=== PATIENT | female | born 1985 | race Asian ===

== ENCOUNTER 2022-12-07 11:25 | Outpatient (CLI) | payer OTHER ==
--- NOTE | 2022-12-07 12:40 | XRAY Report ---
PROCEDURE: Chest 2 View X-Ray INDICATIONS: PRODUCTIVE COUGH TECHNIQUE: 2 views of the chest were acquired. COMPARISON: None. FINDINGS: Surgical changes and devices: None. Lungs and pleura: No pleural effusions or pneumothorax. Lungs are clear. Mediastinum: Mediastinal contours are normal. Heart size is normal. Bones and chest wall: No suspicious bony abnormalities. Soft tissues appear unremarkable. IMPRESSION: No evidence acute pulmonary process. Reviewed by: Cristhian Banegas MD on 12/07/2022 12:38 PM PST Approved by: Cristhian Banegas MD on 12/07/2022 12:38 PM [facility] Station ID: [id number]
== END 2022-12-07 11:26 | disposition home or self-care (01) ==
LOC: DI 11:25
PROVIDERS: ATTEND Nurse Practitioner
DX: R05.8 Other specified cough (principal)

== ENCOUNTER 2023-04-15 20:14 | Emergency (ER) | payer OTHER ==
[2023-04-15 23:30] VITALS: BP 128/96
--- NOTE | 2023-04-15 23:52 | ED Physician Documentation ---
PD HPI HEENT - Stated complaint Stated Complaint: COUGH/SORE THROAT - Chief complaint Chief Complaint: Heent - History obtained from History obtained from: Patient - Additional information Additional information: The pt comes to the ED with CC of dry cough and mild rhinorrhea. She states the only reason she checked in was that her son has similar sx, and she thinks she has the same thing. She says that she figured if we wanted to test her son for anything, she would just volunteer to be tested instead, so he didn't have to go through it. Pt denies fevers. No dyspnea. PD PAST MEDICAL HISTORY - Past Medical History Past Medical History: No - Past Surgical History Past Surgical History: No - Present Medications Home Medications: Ambulatory Orders Medication Instructions Recorded Confirmed No Known Home Medications 04/15/23 04/15/23 - Allergies Allergies/Adverse Reactions: Allergies Allergy/AdvReac Type Severity Reaction Status Date / Time No Known Drug Allergies Allergy Verified 04/15/23 20:16 - Social History Does the pt smoke?: No Smoking Status: Never smoker Does the pt drink ETOH?: Yes Does the pt have substance abuse?: No - Immunizations Immunizations are current?: Yes - POLST Patient has POLST: No PD ED PE NORMAL - Vitals Vital signs reviewed: Yes - General General: Alert and oriented X 3, No acute distress, Well developed/nourished - HEENT HEENT: Atraumatic, PERRL, EOMI, Moist mucous membranes - Neck Neck: Supple, no meningeal sign - Cardiac Cardiac: RRR, No murmur - Respiratory Respiratory: No respiratory distress, Clear bilaterally - Abdomen Abdomen: Soft, Non tender, Non distended - Derm Derm: Warm and dry - Extremities Extremities: No deformity - Neuro Neuro: Alert and oriented X 3 - Psych Psych: Normal mood, Normal affect Results - Vitals Vitals: Oxygen O2 Source Room air PD Medical Decision Making - ED course Complexity details: considered differential, d/w patient ED course: The pt was well-appearing, and I did not feel either she or her son needed emergent viral panel. We have discussed symptomatic management at home and the usual indications for return. Departure - Departure Disposition: 01 Home, Self Care Clinical Impression: Viral URI Condition: Stable Instructions: ED Viral Syndrome Discharge Date/Time: 04/16/23 00:11
== END 2023-04-16 00:11 | disposition home or self-care (01) ==
LOC: ED 20:14
DX: J06.9 Acute upper respiratory infection, unspecified (principal)
CPT/HCPCS: 99281; 99283

== ENCOUNTER 2023-12-16 10:53 | Outpatient (CLI) | payer OTHER ==
[2023-12-16 18:45] LABS: BASOPHILS # (AUTO) 0.1 10^3/uL (0.0-0.1); BASOPHILS % (AUTO) 0.7 %; EOSINOPHILS # (AUTO) 0.6 10^3/uL (0.0-0.7); HCT - HEMATOCRIT 41.7 % (37.0-47.0); LYMPHOCYTES # (AUTO) 1.9 10^3/uL (1.5-3.5); LYMPHOCYTES % (AUTO) 15.2 %; MEAN CORPUSCULAR HEMOGLOBIN 32.5 pg (27.0-31.0); MEAN CORPUSCULAR HGB CONC 33.6 g/dL (32.0-36.0); MEAN CORPUSCULAR VOLUME 96.8 fL (81.0-99.0); MEAN PLATELET VOLUME 11.3 fL (7.9-10.8); MONOCYTES # (AUTO) 0.7 10^3/uL (0.0-1.0); MONOCYTES % (AUTO) 5.7 %; NEUTROPHILS # (AUTO) 9.2 10^3/uL (1.5-6.6); NEUTROPHILS % (AUTO) 72.8 %; PLT - PLATELET COUNT 263 10^3/uL (130-450); RED BLOOD COUNT 4.31 10^6/uL (4.20-5.40); RED CELL DISTRIBUTION WIDTH 12.4 % (12.0-15.0); WHITE BLOOD COUNT 12.6 x10^3/uL (4.8-10.8)
[2023-12-16 19:20] LABS: ALBUMIN 4.3 g/dL (3.2-5.5); ALBUMIN/GLOBULIN RATIO 1.4 (1.0-2.2); BILIRUBIN,TOTAL 0.4 mg/dL (0.2-1.0); CALCIUM 9.8 mg/dL (8.5-10.3); CREATININE 0.6 mg/dL (0.6-1.3); POTASSIUM 3.7 mmol/L (3.5-4.5); TOTAL PROTEIN 7.4 g/dL (6.4-8.9)
[2023-12-18 04:09] LABS: HBsAG SCREEN Negative (Negative)
[2023-12-18 05:13] LABS: RPR Non Reactive (Non Reactive)
[2023-12-18 06:10] LABS: HCV AB Non Reactive (Non Reactive); HIV SCREEN 4TH GENERATION Non Reactive (Non Reactive)
[2023-12-18 09:10] LABS: VARICELLA-ZOSTER AB IGG 1737 index (Immune >165)
== END 2023-12-16 10:54 | disposition home or self-care (01) ==
LOC: LAB.N 10:53
PROVIDERS: ATTEND Physician Assistant
DX: Z87.59 Personal history of other complications of pregnancy, childbirth and the puerperium (principal); Z36.89 Encounter for other specified antenatal screening; O09.529 Supervision of elderly multigravida, unspecified trimester
CPT/HCPCS: 36415; 80053; 85025; 86592; 86762; 86787; 86803; 86850; 86900; 86901; 87340; 87389

== ENCOUNTER 2024-03-02 09:22 | Outpatient (CLI) | payer OTHER ==
--- NOTE | 2024-03-02 14:51 | Ultrasound Report ---
PROCEDURE: OB Anatomy Scan INDICATIONS: SUPERVISION OF OUTSIDE/PRIOR DATING DATA: Last menstrual period (LMP): 10/06/2023. LMP-based estimated date of delivery (BRENDAN): 07/12/2024. First dating scan (date and location): 03/02/2024. Estimated date of delivery (BRENDAN) from first dating scan: 07/12/2024. The below data below was generated using the ultrasound BRENDAN of 07/12/2024 TECHNIQUE: Real-time scanning was performed of the fetus, with image documentation and biometric measurements. Endovaginal scanning: Not performed. COMPARISON: None. FINDINGS: General: A single living intrauterine gestation is present. Presentation: Variable Placenta: Placental position is posterior, without previa. Amniotic fluid index: 18.2 cm, within normal limits for gestational age. heart rate: 136 beats per minute. Maternal cervical canal: 5.2 cm long; normal length is 2.5 cm or more. biometrics: Biparietal diameter: 4.98 cm, 21 weeks 1 day, 45.7% Head circumference: 19.14 cm, 21 weeks 3 days, 51.8% Abdominal circumference: 17.44 cm, 22 weeks 3 days, 80.7% Femur length: 3.68 cm, 21 weeks, 5 days, 60.8% Estimated gestational age from initial scan: 21 weeks, 1 day Composite gestational age from present scan: 21 weeks, 3 days Estimated weight and percentile: 464.6 g, 85.5% Measurement variability in biometric dating: +/- 10 days from 12-20 weeks gestation, +/- 2 weeks from 20-30 weeks gestation, +/- 3 weeks at 30 weeks gestation or later. Anatomic survey: Neuro: Ventricles are normal at less than 10 mm. Cisterna magna is normal at 3-11 mm. Cerebellum i s normal in size and morphology. Nuchal skin fold: Normal at less than 6 mm between 14 and 20 weeks gestational age. Face: Nose and lips, facial profile are normal. Spine: No evidence for spina bifida. Heart: 4-chambered heart is present, with normal ventricular outflow tracts. Diaphragm: Diaphragm is intact. Stomach: Left-sided stomach is present. Kidneys: No hydronephrosis. Normal is less than 5 mm in 2nd trimester, less than 7 mm in 3rd trimester. Cord: 3 vessel cord has orthotopic insertion. Bladder: Normal in size. Extremities: All 4 extremities are visualized. IMPRESSION: 1. Single live intrauterine gestation with a composite gestational age of 21 weeks, 3 days which is c oncordant with dates by LMP. 2. No sonographic anatomic abnormalities. Reviewed by: Eliz Cherry MD on 03/02/2024 2:50 PM PDT Approved by: Eliz Cherry MD on 03/02/2024 2:50 PM PDT Station ID: [id number]
== END 2024-03-02 09:23 | disposition home or self-care (01) ==
LOC: DI 09:22
PROVIDERS: ATTEND Nurse Practitioner Obstetrics & Gynecology
DX: Z34.02 Encounter for supervision of normal first pregnancy, second trimester (principal); Z36.89 Encounter for other specified antenatal screening

== ENCOUNTER 2024-03-16 20:04 | Emergency (ER) | payer OTHER ==
[2024-03-16 20:25] VITALS: BP 126/63; O2SAT 98
[2024-03-16 21:11] LABS: B. PARAPERTUSSIS- RESP PCR PAN NOT DETECTED; B. PERTUSSIS- RESP PCR PANEL NOT DETECTED; C. PNEUMONIAE- RESP PCR PANEL NOT DETECTED; CORONAVIRUS 229E-RESP PCR NOT DETECTED; CORONAVIRUS HKU1-RESP PCR NOT DETECTED; CORONAVIRUS NL63-RESP PCR NOT DETECTED; CORONAVIRUS OC43-RESP PCR NOT DETECTED; HUMAN METAPNEUMOVIRUS NOT DETECTED; INFLUENZA A- RESP PCR PANEL NOT DETECTED; INFLUENZA B - RESP PCR PANEL NOT DETECTED; M. PNEUMONIAE- RESP PCR PANEL NOT DETECTED; PARAINFLUENZA VIRUS 1 NOT DETECTED; PARAINFLUENZA VIRUS 2 NOT DETECTED; PARAINFLUENZA VIRUS 3 NOT DETECTED; PARAINFLUENZA VIRUS 4 NOT DETECTED; RHINOVIRUS/ENTEROVIRUS NOT DETECTED; RSV- RESP PCR PANEL NOT DETECTED; SARS-CoV-2 -RESP PCR PANEL NOT DETECTED
--- NOTE | 2024-03-16 21:41 | ED Physician Documentation ---
History of Present Illness - Stated complaint Stated Complaint: JAW PX/SINUS PX - Chief complaint Chief Complaint: Heent - History obtained from History obtained from: Patient - Additonal information Additional information: 39-year-old woman 23 weeks with positive motion had a cough last week but today over the last 3 days comes in with more sinus pain especially on the right maxillary sinus for 3 days without fevers. PD PAST MEDICAL HISTORY - Past Medical History Past Medical History: No - Past Surgical History Past Surgical History: No - Present Medications Home Medications: Ambulatory Orders Medication Instructions Recorded Confirmed Amoxicillin 500 mg PO TID #30 cap 03/16/24 Aspirin [Saline Aspirin] 81 mg PO DAILY 03/16/24 03/16/24 - Allergies Allergies/Adverse Reactions: Allergies Allergy/AdvReac Type Severity Reaction Status Date / Time No Known Drug Allergies Allergy Verified 03/16/24 20:14 - Social History Does the pt smoke?: No Smoking Status: Never smoker Does the pt drink ETOH?: Yes Does the pt have substance abuse?: No - Immunizations Immunizations are current?: Yes - POLST Patient has POLST: No PD ED PE NORMAL - Vitals Vital signs reviewed: Yes - General General: Alert and oriented X 3, No acute distress - HEENT HEENT: Other (Tender right maxillary sinus. TMs are normal. Oropharynx is normal, good dentition.) - Neck Neck: Supple, no meningeal sign, No bony TTP - Abdomen Abdomen: Other (Gravid) Results - Vitals Vitals: Vital Signs - 24 hr 03/16/24 20:11 Temperature 36 C L Heart Rate 86 Respiratory 18 Rate Blood Pressure 126/63 O2 Saturation 98 Oxygen O2 Source Room air - Labs Labs: Laboratory Tests 03/16/24 20:17 Nasal Adenovirus (PCR) NOT DETECTED Nasal B. parapertussis DNA (PCR) NOT DETECTED Nasal Coronavir 229E PCR NOT DETECTED Nasal Coronavir HKU1 PCR NOT DETECTED Nasal Coronavir NL63 PCR NOT DETECTED Nasal Coronavir OC43 PCR NOT DETECTED Nasal Enterovir/Rhinovir PCR NOT DETECTED Nasal Influenza B PCR NOT DETECTED Nasal Influenza A PCR NOT DETECTED Nasal Parainfluen 1 PCR NOT DETECTED Nasal Parainfluen 2 PCR NOT DETECTED Nasal Parainfluen 3 PCR NOT DETECTED Nasal Parainfluen 4 PCR NOT DETECTED Nasal RSV (PCR) NOT DETECTED Nasal B.pertussis DNA PCR NOT DETECTED Nasal C.pneumoniae (PCR) NOT DETECTED Antonio Human Metapneumo PCR NOT DETECTED Nasal M.pneumoniae (PCR) NOT DETECTED Nasal SARS-CoV-2 (PCR) NOT DETECTED Departure - Departure Disposition: 01 Home, Self Care Clinical Impression: Sinusitis Condition: Good Record reviewed to determine appropriate education?: Yes Instructions: ED Sinusitis Abx Tx Prescriptions: Amoxicillin 500 mg PO TID #30 cap Comments: I sent your prescription electronically to the [facility] in [place]. We are treating you for a sinus infection with amoxicillin. You can take Tylenol, 2 extra strength up to every 6 hours for pain. Return if worse. Follow-up with your OB as per routine.
[2024-03-16] MEDS: AMOXICILLIN 250 MG CAPSULE PO STA (21:51)
== END 2024-03-16 21:52 | disposition home or self-care (01) ==
LOC: ED 20:04
DX: O26.892 Other specified pregnancy related conditions, second trimester (principal); Z3A.23 23 weeks gestation of pregnancy; J32.0 Chronic maxillary sinusitis; Z79.82 Long term (current) use of aspirin; O09.512 Supervision of elderly primigravida, second trimester
CPT/HCPCS: 87633; 99283; A9270

== ENCOUNTER 2024-04-15 08:03 | Outpatient (CLI) | payer OTHER ==
[2024-04-15 08:23] LABS: HCT - HEMATOCRIT 37.2 % (37.0-47.0); HGB - HEMOGLOBIN 12.1 g/dL (12.0-16.0); MEAN CORPUSCULAR HEMOGLOBIN 31.9 pg (27.0-31.0); MEAN CORPUSCULAR HGB CONC 32.5 g/dL (32.0-36.0); MEAN CORPUSCULAR VOLUME 98.2 fL (81.0-99.0); MEAN PLATELET VOLUME 11.1 fL (7.9-10.8); RED BLOOD COUNT 3.79 10^6/uL (4.20-5.40); RED CELL DISTRIBUTION WIDTH 13.7 % (12.0-15.0); WHITE BLOOD COUNT 13.1 x10^3/uL (4.8-10.8)
[2024-04-15 08:36] LABS: GTT GLUCOSE,FASTING 90 mg/dL (74-109)
== END 2024-04-15 08:04 | disposition home or self-care (01) ==
LOC: LAB 08:03
PROVIDERS: ATTEND Nurse Practitioner Obstetrics & Gynecology
DX: Z36.9 Encounter for antenatal screening, unspecified (principal)
CPT/HCPCS: 36415; 82951; 85027

== ENCOUNTER 2024-06-16 08:00 | Outpatient (CLI) | payer OTHER | END 2024-06-16 23:59 | disposition home or self-care (01) | LOC: LAB.WC 08:00 | PROVIDERS: ATTEND Nurse Practitioner | DX: Z34.83 Encounter for supervision of other normal pregnancy, third trimester (principal) | CPT/HCPCS: 87797 ==

== ENCOUNTER 2024-07-03 10:17 | Outpatient (CLI) | payer OTHER ==
--- NOTE | 2024-07-03 10:52 | PROVIDER PROGRESS NOTE ---
- HPI Chief Complaint: Labor Check - Procedures OB Procedure Performed: NST NST Procedure: FHR baseline 140s, moderate variability, + accels, no decels Contractions palpate mild occasionally with soft resting tone - Plan Plan: Margarita is a 39yo @ 38.4wks gestation who presents with c/o contractions. She does not feel like she is necessarily in labor but she feels like she is having a difficulty time differentiating her symptoms as she has previously had her labors induced. She denies vaginal bleeding or leakage of fluid and reports +FM. NST reactive. 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 Vertex A: 39yo @ 38.4wks gestation False labor >37wks gestation FHR Category I Plan: Pt released home with precautions. Reviewed warning s/sx and when to present. Pt has emergency contact number. Follow up for routine visit in the office as scheduled next week or sooner PRN. Pt verbalized understanding and agrees to above plan. She denies further questions or concerns at this time. FINAL DIAGNOSIS: False labor >37wks gestation
[2024-07-03 10:58] VITALS: BP 124/83
[2024-07-03 13:26] VITALS: O2SAT 98
== END 2024-07-03 11:25 | disposition home or self-care (01) ==
LOC: WFO 10:17 → FBP 10:19 → WFO 11:25
PROVIDERS: ATTEND Nurse Practitioner Obstetrics & Gynecology
DX: O47.1 False labor at or after 37 completed weeks of gestation (principal); Z3A.38 38 weeks gestation of pregnancy
CPT/HCPCS: 59025; 99213; 99214

== ENCOUNTER 2024-07-05 23:44 | Inpatient (IN) | payer OTHER ==
[2024-07-06] MEDS ORDERED: OXYTOCIN 10 UNIT/ML VIAL IM PRN (00:02)
[2024-07-06] MEDS ORDERED: NIFEdipine 10 MG CAPSULE PO PRN (00:02)
[2024-07-06] MEDS ORDERED: METHYLERGONOVINE 0.2 MG/ML VIAL IM PRN (00:02)
[2024-07-06] MEDS ORDERED: SODIUM CHLORIDE FLUSH 0.9% 10 ML SYRINGE IVP PRN (00:02)
[2024-07-06] MEDS ORDERED: lidocaine 1% 20 ML MDV ID PRN (00:02)
[2024-07-06] MEDS ORDERED: LABETALOL 20 MG/4 ML SYRINGE IVP PRN ×3 (00:02)
[2024-07-06] MEDS ORDERED: miSOPROStoL 200 MCG TABLET PR PRN (00:02)
[2024-07-06] MEDS ORDERED: miSOPROStoL 200 MCG TABLET BC PRN (00:02)
[2024-07-06] MEDS ORDERED: TERBUTALINE 1 MG/ML VIAL SUBQ PRN (00:02)
[2024-07-06] MEDS ORDERED: fentaNYL 100 MCG/2 ML VIAL IVP PRN (00:02)
[2024-07-06] MEDS ORDERED: TRANEXAMIC ACID IN NACL 1,000 MG/100 ML BAG IV PRN (00:02)
[2024-07-06] MEDS ORDERED: CARBOPROST TROMETHAMINE 250 MCG/ML VIAL IM PRN (00:02)
[2024-07-06] MEDS ORDERED: hydrALAZINE INJ 20 MG/ML VIAL IVP PRN ×2 (00:02)
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
[2024-07-06 00:45] LABS: BASOPHILS # (AUTO) 0.1 10^3/uL (0.0-0.1); BASOPHILS % (AUTO) 0.6 %; EOSINOPHILS # (AUTO) 0.5 10^3/uL (0.0-0.7); EOSINOPHILS % (AUTO) 4.9 %; HCT - HEMATOCRIT 36.1 % (37.0-47.0); HGB - HEMOGLOBIN 12.1 g/dL (12.0-16.0); LYMPHOCYTES # (AUTO) 1.7 10^3/uL (1.5-3.5); LYMPHOCYTES % (AUTO) 16.2 %; MEAN CORPUSCULAR HGB CONC 33.5 g/dL (32.0-36.0); MEAN CORPUSCULAR VOLUME 95.5 fL (81.0-99.0); MEAN PLATELET VOLUME 11.2 fL (7.9-10.8); MONOCYTES # (AUTO) 1.1 10^3/uL (0.0-1.0); MONOCYTES % (AUTO) 10.2 %; NEUTROPHILS # (AUTO) 6.6 10^3/uL (1.5-6.6); NEUTROPHILS % (AUTO) 64.3 %; PLT - PLATELET COUNT 161 10^3/uL (130-450); RED BLOOD COUNT 3.78 10^6/uL (4.20-5.40); RED CELL DISTRIBUTION WIDTH 13.4 % (12.0-15.0); WHITE BLOOD COUNT 10.3 x10^3/uL (4.8-10.8)
[2024-07-06] MEDS ORDERED: SODIUM CHLORIDE FLUSH 0.9% 10 ML SYRINGE IVP SCH (01:00)
[2024-07-06 01:04] LABS: ALBUMIN 3.3 g/dL (3.2-5.5); ALBUMIN/GLOBULIN RATIO 1.1 (1.0-2.2); BILIRUBIN,TOTAL 0.3 mg/dL (0.2-1.0); CREATININE 0.7 mg/dL (0.6-1.3); POTASSIUM 3.7 mmol/L (3.5-4.5); TOTAL PROTEIN 6.2 g/dL (6.4-8.9)
[2024-07-06 04:34] VITALS: O2SAT 99
[2024-07-06] MEDS: LACTATED RINGERS 1,000 ML IV PRN (04:59)
[2024-07-06] MEDS ORDERED: ROPIVACAINE 0.2% 200 MG/100 ML BAG EP ONE (05:17)
[2024-07-06] MEDS ORDERED: LIDOCAINE 2%-EPI 1:100000 20 ML MDV ONE (05:17)
[2024-07-06] MEDS ORDERED: ROPIVACAINE 0.2% 200 MG/100 ML BAG EP PRN (05:58)
[2024-07-06] MEDS ORDERED: ePHEDrine 50 MG/ML VIAL IVP PRN (05:58)
[2024-07-06] MEDS ORDERED: NALOXONE 0.4 MG/ML VIAL IVP PRN (05:58)
--- NOTE | 2024-07-06 05:58 | ANESTHESIA ---
Pre-Anesthesia VS, & Labs - Diagnosis active labor - Procedure vaginal delivery Vital Signs: Temp Pulse Resp BP Pulse Ox O2 Flow Rate 36.4 C L 79 17 105/63 99 07/06/24 04:33 07/06/24 04:33 07/06/24 04:33 07/06/24 04:07/06/24 04:33 Height: 5 ft 2 in Weight (kg): 75.75 kg Body Mass Index: 30.5 BMI Classification: Obese - NPO >8 hours - Is Patient ?: Yes - Lab Results Current Lab Results: Laboratory Tests 07/06/24 00:27: Sodium 135, Potassium 3.7, Chloride 107, Carbon Dioxide 20 L, Anion Gap 8.0, BUN 14, Creatinine 0.7, Estimated GFR (MDRD) 94, Glucose 116 H, Calcium 9.0, Total Bilirubin 0.3, AST 16, ALT 17, Alkaline Phosphatase 87, Total Protein 6.2 L, Albumin 3.3, Globulin 2.9, Albumin/Globulin Ratio 1.1 07/06/24 00:27: WBC 10.3, RBC 3.78 L, Hgb 12.1, Hct 36.1 L, MCV 95.5, MCH 32.0 H , MCHC 33.5, RDW 13.4, Plt Count 161, MPV 11.2 H, Neut # (Auto) 6.6, Lymph # (Auto) 1.7, [place] # (Auto) 1.1 H, Eos # (Auto) 0.5, Baso # (Auto) 0.1, Absolute Nucleated RBC 0.00, Nucleated RBC % 0.0 07/06/24 00:27: Blood Type O POSITIVE, Antibody Screen NEGATIVE Lab results reviewed: Yes Fish Bones: 07/06/24 00:27 07/06/24 00:27 Home Medications and Allergies Active Medications Carboprost Tromethamine (Carboprost Tromethamine 250 Mcg/Ml Vial) 250 mcg IM .ONCE PRN PRN Reason: Hemorrhage Fentanyl (Fentanyl 100 Mcg/2 Ml Vial) 50 mcg IVP Q1H PRN PRN Reason: Severe Pain (score 7-10) Hydralazine HCl (Hydralazine Inj 20 Mg/Ml Vial) 5 - 10 mg IVP Q20M PRN; Protocol PRN Reason: SBP> or= 160 OR DBP> or= 110 Hydralazine HCl (Hydralazine Inj 20 Mg/Ml Vial) 10 mg IVP .ONCE PRN; Protocol PRN Reason: SBP> or= 160 OR DBP> or= 110 Lactated Ringer's (Lr) 500 mls @ 999 mls/hr IV PRN PRN PRN Reason: PER PHYSICIAN ORDER Last Admin: 07/06/24 04:59 Dose: 999 mls/hr Oxytocin/Sodium Chloride (Pitocin/Sodium Chloride) 500 mls @ 999 mls/hr IV PRN PRN; Protocol PRN Reason: POST- HEMORR PREVENTION Tranexamic Acid (Tranexamic 1,000 Mg/100ml-Nacl) 1,000 mg in 100 mls @ 600 mls/hr IV Q30M PRN PRN Reason: EBL >1200mL and within 3hr Labetalol HCl (Labetalol 20 Mg/4 Ml Syringe) 20 - 80 mg IVP Q10M PRN; Protocol PRN Reason: SBP> or= 160 OR DBP> or= 110 Labetalol HCl (Labetalol 20 Mg/4 Ml Syringe) 20 mg IVP .ONCE PRN; Protocol PRN Reason: SBP> or= 160 OR DBP> or= 110 Labetalol HCl (Labetalol 20 Mg/4 Ml Syringe) 20 - 40 mg IVP Q10M PRN; Protocol PRN Reason: SBP> or= 160 OR DBP> or= 110 Lidocaine HCl (Lidocaine 1% 20 Ml Mdv) 20 ml ID .ONCE PRN PRN Reason: PERINEAL REPAIR Stop: 07/09/24 00:02 Methylergonovine Maleate (Methylergonovine 0.2 Mg/Ml Vial) 0.2 mg IM .ONCE PRN PRN Reason: Hemorrhage Misoprostol (Misoprostol 200 Mcg Tablet) 600 mcg BC .ONCE PRN PRN Reason: Hemorrhage Misoprostol (Misoprostol 200 Mcg Tablet) 800 mcg HI .ONCE PRN PRN Reason: Hemorrhage Nifedipine (Nifedipine 10 Mg Capsule) 10 - 20 mg PO Q20M PRN; Protocol PRN Reason: SBP> or= 160 OR DBP> or= 110 Oxytocin (Oxytocin 10 Unit/Ml Vial) 10 unit IM .ONCE PRN PRN Reason: Step One if no IV access. Sodium Chloride (Sodium Chloride Flush 0.9% 10 Ml Syringe) 10 ml IVP PRN PRN PRN Reason: NEEDED PER PROVIDER ORDERS Sodium Chloride (Sodium Chloride Flush 0.9% 10 Ml Syringe) 10 ml IVP Q8H AKIL Terbutaline Sulfate (Terbutaline 1 Mg/Ml Vial) 0.25 mg SUBQ .ONCE PRN PRN Reason: Tachystole Aspirin [[place] Aspirin] 81 mg PO DAILY 03/16/24 Allergies/Adverse Reactions: Allergies Allergy/AdvReac Type Severity Reaction Status Date / Time No Known Drug Allergies Allergy Verified 03/16/24 20:14 Anes History & Medical History - Anesthetic History Anesthesia Complications: reports: No previous complications - Medical History Cardiovascular: reports: None Pulmonary: reports: None Gastrointestinal: reports: None Urinary: reports: None Neuro: reports: None Musculoskeletal: reports: None Endocrine/Autoimmune: reports: None Blood Disorders: reports: None Skin: reports: None Smoking Status: Never smoker Psychosocial: reports: No issues indicated History of Cancer?: No Other Past Medical History: History of PDPH with second epidural. Required blood patch. - Surgical History Gynecologic: reports: Breast implants, Other (breast implant removal) - Obstetrical History : 3 Parity: 2 Events: reports: None Complications: reports: None Exam General: Alert, Oriented x3, Cooperative, No acute distress Dental: WNL Mouth Openin Fingerbreadth Neck Mobility: Normal Mallampati classification: II Thyromental Distance: 4-6 cm Mental/Cognitive Status: Alert/Oriented X3, Normal for patient Plan Anesthesia Type: Epidural Consent for Procedure(s) Verified and Reviewed: Yes Code Status: Attempt Resuscitation ASA classification: 2-Mild systemic disease Is this case an emergency?: No
[2024-07-06] MEDS: OXYTOCIN/SODIUM CHLORIDE 500 ML IV SCH (06:03)
[2024-07-06] MEDS ORDERED: HYDROCORTISONE 1% CREAM 28 GM TUBE PR PRN (09:45)
[2024-07-06] MEDS: LACTATED RINGERS 1,000 ML IV SCH (10:00)
[2024-07-06] MEDS: OXYTOCIN/SODIUM CHLORIDE 500 ML IV PRN (10:05)
--- NOTE | 2024-07-06 10:16 | DELIVERY NOTE ---
Delivery Note - Labor Labor: positive: Spontaneous, Augmented by oxytocin - Delivery Method Delivery Method: positive: Spontaneous vaginal delivery - Presentation Presentation: positive: Vertex, AIME - right occiput anterior - Nuchal Cord Nuchal Cord: positive: None - Amniotic Fluid Description Amniotic Fluid Description: positive: Clear - Episiotomy Type Episiotomy Type: positive: None - Laceration Laceration: positive: None - Delivery Outcome Delivery Outcome: positive: Livebirth - [place]: positive: Placed in direct skin contact with mother, Stimulated, Warmed, Sandy used [place] sex: positive: Male - Cord Cord: positive: 3 vessels - Placenta Placenta: positive: Intact, Spontaneous - Estimated Blood Loss Estimated Blood Loss (in cc): 46 (QBL) - Post Delivery Events Post Delivery Events: positive: No post delivery events - Delivery Comments (Free Text/Narrative) Delivery Comments (Free Text/Narrative): Labor: This 39yo @ 39.1wks gestation by LMP c/w 9.3wk U/S presented to [facility] on 07/06/2024 with c/o vaginal leakage of clear fluid that occurred on 07/05/2024 @ 2054. Upon arrival she was noted have grossly ruptured membranes with clear fluid. SVE 4/70/-2 and vertex. Epidural placed per maternal request. FHR demonstrated Category I pattern throughout labor. Normal labor course. Pitocin initiated for augmentation of labor with maximum infusion rate of 4mU/mL. She progressed to c/c/+2 at 0911 with onset of active pushing at 0918. : Normal SVB of viable male infant on 07/06/2024 @ 0924. No nuchal cord. The was placed on maternal abdomen, stimulated, dried, and placed skin to skin. Apgars were 8/9 at 1 and 5 minutes respectively. Pitocin administered via IV for hemostasis. The umbilical cord was allowed to stop pulsating at which time it was doubly clamped by CNM and cut by FOB. Cord blood was obtained. 3V. Fundal massage and gentle cord traction applied for active management of the third stage. Placenta delivered spontaneously and intact at 0930. QBL 46mL. Fourth stage: Uterine fundus firm and there is no excessive bleeding. The perineum, vagina, and cervix were inspected and found to be intact. initiated. Family bonding well. Both mother and baby were left in stable condition.
[2024-07-06] MEDS: IBUPROFEN 800 MG TABLET PO SCH (11:21)
[2024-07-06] MEDS: ACETAMINOPHEN 500 MG TABLET PO SCH (11:21)
--- NOTE | 2024-07-06 12:07 | PHARMACY PROGRESS NOTE ---
- Best Possible Medication History Admit Date and Time: 07/06/24 0002 Processed by: Pharmacy Medications reviewed in ED?: No Medication History completed: Yes Secondary Source(s): Pharmacy records, Insurance records As the person ultimately responsible for medication therapy, providers are able to order a medication from an existing home medication list in [facility] via the "Reconcile Routine" prior to Confirmation of that medication by gwot ia/ilo intelligence support. Such practice is discouraged except when the physician, in their clinical judgment, deems that a medical need exists for a medication without regard to previous use.
[2024-07-06] MEDS: WITCH HAZEL/GLYCERIN 1 PAD TOP PRN (13:30)
[2024-07-06] MEDS: DOCUSATE SODIUM 100 MG CAPSULE PO SCH (20:31)
[2024-07-07 09:47] VITALS: BP 128/74
--- NOTE | 2024-07-07 15:30 | Discharge Plan ---
Discharge Plan Problem Reviewed?: Yes Disposition: Home, Self Care Condition: Good Diet: Regular Activity Restrictions: No Restrictions Shower Restrictions: No Driving Restrictions: No Weight Bearing: Full Weight Instruction Topics: Vaginal After, Breastfeed Holds, Self Care, Nutrition No Smoking: If you smoke, Please STOP! Call for help. Follow-up with: Marylou Curtis CNM, JEY [Provider Admit Priv/Credential] - 1 Week
--- NOTE | 2024-07-07 15:32 | Labor Flowsheet ---
Labor Flowsheet Datetime Report Generated by CPN: 07/07/2024 15:32 Datetime: 07/07/2024 09:22 VITAL SIGNS NBP Sys/Zoe/Mean (mmHg): 128 : 74 : 85 Pulse: 78 Datetime: 07/06/2024 20:30 MATERNAL ASSESSMENT Level of Consciousness: Alert Headache: Denies Nausea/Vomiting: Denies Datetime: 07/06/2024 15:25 Stage of : Datetime: 07/06/2024 10:05 Medication Comments: second bag of pit hung, Fundus boggy. Provider aware and ok with hanging sec ond bag. Datetime: 07/06/2024 09:35 SpO2 (%): 95 Datetime: 07/06/2024 09:28 Membranes Ruptured Date/Time: 07/05/2024 20:55 Membranes Rupture Method: Spontaneous Amniotic Fluid Color: Clear Communication Comments: cord cut by FOB LaborFlag: Labor Datetime: 07/06/2024 09:24 UTERINE ACTIVITY Monitor Mode: External Frequency (min): 1.5-2.5 Quality: Strong Duration (sec): 50-70 Pattern: Normal: <= 5 Contractions in 10 Minutes Resting Tone (Palpate): Relaxed FHR Baseline Rate : 135 Variability: Moderate 6-25 bpm Accelerations: None Decelerations: None Category: Category I Datetime: 07/06/2024 09:18 Contraction Comments: pushing Datetime: 07/06/2024 09:11 VAGINAL EXAM Dilatation (cm): 10.0 Effacement (%): 100 Station: 2 Exam by: A. Kirsten CNM Datetime: 07/06/2024 09:10 COMMUNICATION Communication: Provider at Bedside Datetime: 07/06/2024 08:45 FHR Baseline Changes: No Baseline Change Datetime: 07/06/2024 08:40 Pain Coping: Sleeping Datetime: 07/06/2024 08:05 Temperature (C): 36.5 Datetime: 07/06/2024 08:02 Anesthesia Level Check: T10- Umbilicus Anesthesia Comments: BL Datetime: 07/06/2024 07:47 Monitor Interventions for UA: Pala Adjusted Datetime: 07/06/2024 07:41 Monitor Interventions for FHR: Ultrasound Adjusted Datetime: 07/06/2024 07:39 Patient Position/Activity: Left Lateral Patient Care Comments: peanutball Datetime: 07/06/2024 07:36 PAIN Pain Presence: None/Denies Pain Assessment Comments: Pt. states she is not experiencing pain but feels like the contractions a re stronger. Feels cramping but not painful. Contraction palpated strong. Datetime: 07/06/2024 07:15 ASSESSMENT A Monitor Mode: External US Datetime: 07/06/2024 06:48 MEDICATIONS Pitocin (milliunits): Increased to @ 4 Datetime: 07/06/2024 06:29 Pitocin Checklist: At Least 1 Acceleration of 15 bpm x 15 Seconds in 30 Minutes or Adequate Variabi lity; No More than 1 Late Deceleration Occurred in Past 30 Minutes; No More than 2 Variable Decelerat ions > 60 Seconds in Duration and decreasing >60 bpm in 30 minutes; No More than 5 Uterine Contractio ns in 10 Minutes for any 20 Minute Interval; Uterus Palpates Soft between Contractions Oxygen Method: Room Air Datetime: 07/06/2024 06:10 I/O Interventions: Kevin Cath Inserted Datetime: 07/06/2024 05:45 Epidural Procedure: Completed Datetime: 07/06/2024 05:25 Epidural Positioning: Sitting Datetime: 07/06/2024 05:19 PROCEDURE TIME OUT Procedure Verify: Correct Patient Identity; Accurate Procedure Consent Form; Agreement on Procedure to be Done; Safety Precautions Based on Patient History or Medication Use ANESTHESIA Anesthesia Plans: Epidural Datetime: 07/06/2024 05:18 Provider Notified (Name): A. Mehul, CAMP ADVISOR Datetime: 07/06/2024 05:01 PATIENT CARE IV/Blood Work: IV Bolus Started; IV Bolus Given ml @ 500 Datetime: 07/06/2024 04:35 Maternal Comments: Pt states leg has been feeling "numb" for thelast two weeks. Describes sensation as "tight" and "almost like it's falling asleep". Denies any tingling. Datetime: 07/06/2024 04:30 TEACHING Plan of Care: Plan of Care Discussed; Labor Labor/Induction: Augmentation Pain Management: Epidural Medications: Pitocin Datetime: 07/06/2024 04:28 Pain Relief Measures: Comfort Measures Datetime: 07/06/2024 01:00 Comments: interrupted strip pattern d/t maternal movement
--- NOTE | 2024-07-08 15:19 | DISCHARGE SUMMARY ---
Discharge Summary Condition at Discharge: Good Discharge Disposition: 01 Home, Self Care - HOSPITAL COURSE Hospital Course: Date of Admission: 07/06/2024 Date of Discharge: 07/07/2024 Diagnosis on Admission: 1. 39yo @ 39.1wks gestation by LMP c/w 1st trimester ultrasound 2. SROM 3. Early labor 4. FHR Category I 5. GBS negative Diagnosis on Discharge: 1. 39yo PPD#1 s/p TSVB viable male 2. 3. Normal recovery Brief History: She is a patient of [facility] [place] who presented on 07/06/2024 with grossly ruptured membranes. Upon arrival cervix was 4/70/-2 and vertex. Epidural was placed per maternal reuqest. She received pitocin for augmentation of labor. She progressed to spontaneously deliver a viable male infnat on 07/06/2024 @ 0918 over intact perineum. QBL 46mL. Apgars were 8/9 at 1 and 5 minutes respectively. SHe has been doing well in her course. She is ambulating and tolerating a regular diet. She is urinating without difficulty and her lochia is normal. Her pain is well controlled with oral medications. She is bonding well with her baby and she is without difficulty. She has been instr ucted to continue taking her vitmain while and to continue taking ibuprofen and tylenol over the counter as needed for pain management. She intends to follow up with myself in 1 week for routine visit or sooner if needed. She has been given precautions to call if she has any worsening fevers, chills, abdmoinal pain, increased vaginal bleeding or foul smelling vaginal lochia. Physical exam: Normocephalic, atraumatic. Heart RRR w/o M/G/R, lungs CTAB, abdomen soft and nontender with fundus furm at U. Perineum intact, light lochia rubra, bilateral LE"s trace edema. Mood is good. - ALLERGIES Allergies/Adverse Reactions: Allergies Allergy/AdvReac Type Severity Reaction Status Date / Time No Known Drug Allergies Allergy Verified 03/16/24 20:14 - MEDICATIONS Home Medications: Ambulatory Orders Medication Instructions Recorded Confirmed Aspirin [[place] Aspirin] 81 mg PO DAILY 03/16/24 07/06/24 Cholecalciferol (Vitamin D3) 25 mcg PO DAILY 07/06/24 07/06/24 [Vitamin D3] Pnv No.95/Ferrous Fum/Folic AC 1 each PO DAILY 07/06/24 07/06/24 [ Tablet] Vitamin B Complex 1 tab PO DAILY 07/06/24 07/06/24 - LABS Result Diagrams: 07/06/24 00:27 07/06/24 00:27
== END 2024-07-07 15:00 | disposition home or self-care (01) | DRG 807 ==
LOC: WFO 23:44 → FBP 23:45 → WFO 07-06 00:02 → FBP 07-06 00:41
PROVIDERS: ADMIT Nurse Practitioner Obstetrics & Gynecology; ATTEND Nurse Practitioner Obstetrics & Gynecology
PROC: 10E0XZZ Delivery of Products of Conception, External Approach (ICD-10-PCS; principal; 2024-07-06)
DX: O80 Encounter for full-term uncomplicated delivery (principal); Z37.0 Single live birth; Z3A.39 39 weeks gestation of pregnancy; Z87.59 Personal history of other complications of pregnancy, childbirth and the puerperium
CPT/HCPCS: 59409; 80053; 85025; 86850; 86900; 86901; A9270; J7120